=== PATIENT | female | born 1995 | race American Indian/Alaskan Native ===

== ENCOUNTER 2016-03-31 17:39 | Emergency (ER) | payer OTHER ==
--- NOTE | 2016-03-31 18:24 | Emergency Department Report ---
Chief Complaint: Recheck/Abnormal Lab/Rx Stated Complaint: MONO TEST POSITIVE PER DR GRIGSBY Time Seen by Provider: 03/31/16 18:16 - HPI History of Present Illness: 20-year-old -Indian female in college has been sent over by her primary care provider to the ER for positive mono test. Patient's symptoms started 5 days ago she was having nausea vomiting headache chills for the last few days today she is feeling much better. - Exam Vital Signs: Vital Signs 03/31/16 17:46 Temperature 98.3 F Pulse Rate 79 Respiratory 18 Rate Blood Pressure 119/77 O2 Sat by Pulse 100 Oximetry Physical Exam: Patient's alert and oriented 3 cardiovascular S1-S2 regular rate and rhythm respiratory clear to auscultation bilateral and she has some petechiae noted on her chest and right arm and face. HEENT normocephalic atraumatic pupils equal round throat nonerythematous nonerythematous no exudate. There is no lymphadenopathy no thyromegaly MSE screening note: Focused history and physical exam performed. Due to findings the following was ordered: Assessment evaluated by this provider in MSE. We will go ahead and repeat her CBC CMP a mono. He she will be evaluated in the main ER ED Disposition for [facility] [place] Condition: Stable
[2016-03-31 19:01] LABS: Hematocrit 35.7 % (30.3-42.9); Hemoglobin 11.2 gm/dl (10.1-14.3); Mean Corpuscular HGB Conc 31 % (30-34); Red Blood Count 5.17 M/mm3 (3.65-5.03); Red Cell Distribution Width 15.9 % (13.2-15.2); White Blood Count 3.2 K/mm3 (4.5-11.0)
[2016-03-31 19:02] LABS: Mean Corpuscular Hemoglobin 22 pg (28-32); Mean Corpuscular Volume 69 fl (79-97)
[2016-03-31 19:12] LABS: Alanine Aminotransferase 23 units/L (7-56); Albumin 3.9 g/dL (3.9-5); Alkaline Phosphatase 57 units/L (35-129); Anion Gap 17 mmol/L; BUN/Creatinine Ratio 16.66; Bilirubin,Total 0.2 mg/dL (0.1-1.2); Blood Urea Nitrogen 15 mg/dL (7-17); Calcium 8.8 mg/dL (8.4-10.2); Carbon Dioxide 28 mmol/L (22-30); Chloride 100.1 mmol/L (98-107); Glucose 96 mg/dL (65-100); Potassium 4.8 mmol/L (3.6-5.0); Sodium 140 mmol/L (137-145); Total Protein 7.7 g/dL (6.3-8.2)
[2016-03-31 19:50] LABS: Platelet Count 42 K/mm3 (140-440)
[2016-04-01 08:13] LABS: HIV-1 Antigen p24 Non React (Non React); HIVR-1/2 Ab Non React (Non React)
--- NOTE | 2016-04-01 08:35 | Emergency Department Report ---
HPI - General Chief Complaint: Recheck/Abnormal Lab/Rx Time Seen by Provider: 03/31/16 18:16 - HPI HPI: Chief complaint: Abnormal labs HPI: Patient is a 20-year-old female been sick for the last 4-5 days with some nausea and vomiting as well as chills. Patient denies any bleeding but she is currently on her menstrual cycle. Patient states she went to see her primary care doctor, had blood work done and was sent to the emergency department when the blood work returned. Patient has elevated Savanna-Lieberman virus titers as well as leukopenia and thrombocytopenia. Patient denies any risk factors for hepatitis or HIV. Patient has no medical problems. Mode of arrival: private car Source: Patient Began:4-5 days ago Duration: See above Context: See above Quality: Body aches Severity: Currently 0 out of 10 Improved with: Tylenol Worsened with: Nothing Associated signs and symptoms: See above ED Past Medical Hx - Past Medical History Previous Medical History?: No Additional medical history: Eczema - Surgical History Past Surgical History?: No - Social History Smoking Status: Never Smoker Substance Use Type: None - Medications Home Medications: Home Medications Medication Instructions Recorded Confirmed Last Taken Type predniSONE [Deltasone] 20 mg PO QDAY #5 tab 04/01/16 Unknown Rx ED Review of Systems ROS: Stated complaint: MONO TEST POSITIVE PER DR GRIGSBY Other details as noted in HPI ROS Constitutional: No fever ENT: No uri symptoms Cardiovascular: No chest pain Respiratory: No sob or cough GI: No diarrhea : No dysuria frequency or urgency, Skin: No rash Neuro: No focal weakness or numbness Psych: No depression Wilber/lymph: No edema Physical Exam - Physical Exam Vital Signs: Vital Signs 03/31/16 04/01/16 17:46 04:07 Temperature 98.3 F 98.0 F Pulse Rate 79 72 Respiratory 18 20 Rate Blood Pressure 119/77 Blood Pressure 135/90 [Right] O2 Sat by Pulse 100 100 Oximetry Physical Exam: GENERAL: The patient is well-developed well-nourished . HEENT: Normocephalic. Atraumatic. Extraocular motions are intact. Patient has moist mucous membranes. NECK: Supple. No meningitic signs are noted. There is no adenopathy noted. CHEST/LUNGS: Clear to auscultation. There is no respiratory distress noted. HEART/CARDIOVASCULAR: Regular. There is no tachycardia. There is no gallop rub or murmur. ABDOMEN: Abdomen is soft, nontender. Patient has normal bowel sounds. There is no abdominal distention. SKIN: Patient has a chronic rash of eczema. There is no edema. There is no diaphoresis. NEURO: The patient is awake, alert, and oriented. The patient is cooperative. The patient has no focal neurologic deficits. The patient has normal speech. MUSCULOSKELETAL: There is no tenderness or deformity. There is no limitation range of motion. There is no evidence of acute injury. ED Course Vital Signs 03/31/16 04/01/16 17:46 04:07 Temperature 98.3 F 98.0 F Pulse Rate 79 72 Respiratory 18 20 Rate Blood Pressure 119/77 Blood Pressure 135/90 [Right] O2 Sat by Pulse 100 100 Oximetry - Reevaluation(s) Reevaluation #1: 04/01/[address] Baires. Dr. Baires recommends starting the patient on prednisone and have them follow-up in the office on Sunday. Patient advised to return to the emergency department for any bleeding or worsening of symptoms. Patient also started on prednisone 20 mg a day for 5 days. ED Medical Decision Making - Lab Data Result diagrams: 03/31/16 18:40 03/31/16 18:40 Laboratory Tests 03/31/16 04/01/16 04/01/16 18:40 07:32 07:32 Hepatitis A IgM Ab Non-reactive Hep Bs Antigen Non-reactive Hep B Core IgM Ab Non-reactive Hepatitis C Antibody Non-reactive Monoscreen Negative HIV 1&2 Antibody Rapid Non react HIV P24 Antigen Non react Critical care attestation.: If time is entered above; I have spent that time in minutes in the direct care of this critically ill patient, excluding procedure time. ED Disposition Clinical Impression: Mononucleosis, Thrombocytopenia Disposition: DISCHARGED TO HOME OR SELFCARE Is pt being admited?: No Does the pt Need Aspirin: No Condition: Stable Instructions: Mononucleosis (ED) Prescriptions: predniSONE [Deltasone] 20 mg PO QDAY #5 tab Referrals: JAY GRULLON NP [Primary Care Provider] - 3-5 Days AIDEE BAIRES MD [Staff Physician] - 04/03/16 (Call early Sunday morning to set up an appointment for Sunday or Sunday.) Time of Disposition: 08:34
[2016-04-01 08:54] LABS: Basophils % (Manual) 0 % (0.0-1.8); Blastocytes % (Manual) 0 %
[2016-04-01 08:59] LABS: Anisocytosis 2+; Hypochromasia 2+; Microcytosis 2+
[2016-04-01 09:01] LABS: Ovalocytes Few; Poikilocytosis Few; Schistocytes Few
[2016-04-01 09:02] LABS: Diff Status Complete; Platelet Estimate Appears Decreased
[2016-04-01 09:43] VITALS: BP 138/54
== END 2016-04-01 09:44 | disposition home or self-care (01) ==
LOC: ED 17:39
DX: B27.90 Infectious mononucleosis, unspecified without complication (principal); D69.6 Thrombocytopenia, unspecified
CPT/HCPCS: 36415; 80053; 80074; 85007; 85025; 85027; 86308; 87806; 99283